=== PATIENT | female | born 2000 | race Two or more races ===

== ENCOUNTER 2024-05-29 15:09 | Outpatient (REF) | payer OTHER, SELFPAY ==
--- NOTE | ~2024-05-29 | MR_ITS ---
EXAMINATION: MRI LOWER EXTREMITY, NON JOINT, WITHOUT AND WITH CONTRAST, LEFT CLINICAL INFORMATION: Left lateral mid thigh pain. No discrete palpable mass. Patient states after sitting for a while, needle like stabbing left lateral mid thigh, getting worse, chronic over one year. COMPARISON: None available. TECHNIQUE: MRI of the left thigh was performed before and after the intravenous administration of 8 mL of gadolinium this on a high-field 1.5 [employer] Siemens magnet. Standard sequences utilized. FINDINGS: No mass, abnormal fluid collection, or other abnormality is identified within the left thigh. The musculature of the anterior and posterior compartments is normal in signal . The adductor musculature, image gluteal musculature, and imaged hip girdle musculature is normal. No abnormal enhancement. The bony structures and imaged joint structures included in imaging are normal. No bone marrow edema or cortical abnormality. The imaged neurovascular bundles appear normal. The subcutaneous fat is normal in signal and appearance. MR/MR femur LT wo/w con IMPRESSION: Normal MRI examination of the left thigh. No imaging explanation for bilateral thigh pain. Electronically signed by: Dayron Mccann MD 05/29/2024 04:39 PM EDT
[2024-05-29] MEDS: gadobutroL 10 ML VIAL IVPUSH (16:17)
== END 2024-05-29 15:10 | disposition home or self-care (01) ==
LOC: HO.MRI 15:09
PROVIDERS: Visit Provider Family Medicine
DX: R22.9 Localized swelling, mass and lump, unspecified (principal)
CPT/HCPCS: 73720; A9585

== ENCOUNTER → 2024-05-29 15:26 | Outpatient (BNV) | payer OTHER, SELFPAY | PROVIDERS: Visit Provider Radiology Diagnostic Radiology | DX: M79.652 Pain in left thigh (principal) | CPT/HCPCS: 73720 ==